=== PATIENT | female | born 1950 ===

== ENCOUNTER 2023-09-06 07:47 | Day surgery (SDC) | payer OTHER ==
[2023-09-04 10:16] LABS: PH,URINE 5.5 (5.0-8.0); URINE APPEARANCE Clear; URINE BILIRRUBIN Negative (NEGATIVE); URINE BLOOD Trace; URINE COLOR Yellow; URINE GLUCOSE Negative (NEGATIVE); URINE LEUKOCYTE Small; URINE NITRATE Negative; URINE PROTEIN Negative (NEGATIVE); URINE UROBILINOGEN 0.2 E.U./dl
[2023-09-04 10:17] LABS: HEMATOCRIT 40.4 % (36.0-45.00); HEMOGLOBIN 13.6 g/dL (12.0-15.00); MEAN CELL VOLUME 92.3 fL (80.00-100.00); MEAN CORPUSCULAR HEMOGLOBIN 31.1 pg (27.00-32.0); MEAN CORPUSCULAR HGB CONC 33.7 g/dl (32.0-36.0); PLATELET COUNT 328 K/uL (150-450); RED BLOOD COUNT 4.38 M/uL (4.00-6.00); RED CELL DISTRIBUTION WIDTH 14.5 % (11.5-14.5); URINE BACTERIA 120.9 uL (0.0-1933); URINE EPITHELIAL CELLS 13.5 uL (0.0-38.8); URINE RBC 17.4 uL (0.0-20.8); URINE WBC 25.4 uL (0.0-23.2)
[2023-09-04 10:41] LABS: INR 1.06; PARTIAL THROMBOPLASTIN TIME 26.8 SECONDS (22.0-34.0); PROTHROMBIN TIME 11.1 SECONDS (9.0-11.5)
[2023-09-04 10:56] LABS: ALBUMIN 3.7 gm/dL (3.4-5.0); BILIRUBIN TOTAL 0.43 mg/dL (0.3-1.2); CREATININE SERUM 0.72 mg/dL (0.55-1.02); GFR 79.85; GLOBULINA 3.3 G/DL (2.4-3.5); POTASSIUM 4.01 mEq/L (3.5-5.1)
[~2023-09-06] VITALS: Ht 160 cm; Wt 63.5 kg
[~2023-09-06 07:47] MED LIST: ATACAND16 MG
[2023-09-06] MEDS ORDERED: POVIDONE-IODINE 118 ML BOTT TOP ONE (11:57)
[2023-09-06] MEDS ORDERED: LIDOCAINE HCL 1%/EPINEPHRINE 20ML VIAL IJ ONE (11:57)
[2023-09-06] MEDS ORDERED: HEMOSTATIC MATRIX 1 KIT KIT TOP ONE (11:57)
[2023-09-06] MEDS ORDERED: DIBUCAINE 30 GM TUBE ONE (11:57)
[2023-09-06] MEDS ORDERED: METRONIDAZOLE/SODIUM CHLORIDE 500 MG/100 ML PIGGYBACK IV ONE (11:57)
[2023-09-06] MEDS ORDERED: BUPIVACAINE HCL/Mpf 0.5% 10ML VIAL ONE (11:57)
[2023-09-06] MEDS ORDERED: BUPIVACAINE LIPOSOME/PF 266 MG/20 ML VIAL IJ ONE ×2 (12:02→13:40)
[2023-09-06] MEDS ORDERED: levoFLOXacin IN DEXTROSE 5 % 5 MG/ML PIGGYBAG IV SCH (14:30)
[2023-09-06] MEDS ORDERED: PERCOCET 5-3251 EACH PO (16:59)
[2023-09-06] MEDS ORDERED: NEURONTIN300 MG PO (17:00)
[2023-09-06] MEDS ORDERED: CELECOXIB200 MG PO (17:00)
== END 2023-09-06 21:00 | disposition home or self-care (01) ==
LOC: CIR.AMB 07:47
PROVIDERS: ATTEND Surgery
DX: K64.2 Third degree hemorrhoids (principal); K64.4 Residual hemorrhoidal skin tags; K64.8 Other hemorrhoids; K62.5 Hemorrhage of anus and rectum; K57.30 Diverticulosis of large intestine without perforation or abscess without bleeding; I10 Essential (primary) hypertension; Z88.0 Allergy status to penicillin